=== PATIENT | female | born 1980 | race Hispanic/Latino ===

== ENCOUNTER 2025-03-21 13:18 | Emergency (ER) | payer SELFPAY ==
[~2025-03-21] VITALS: Ht 154.9 cm; Wt 52.2 kg
--- NOTE | 2025-03-21 13:28 | ERN ---
ED Note History of Present Illness Stated Complaint: GENERAL BODY ACHES AND PAINS WITH PALPITATIONS Chief Complaint: Multiple Complaints Time Seen by MD: 13:23 Time Seen by Midlevel: 13:23 Dictation: Ms. Quick is a female with history of hypertension (untreated) who was transported via EMS to the emergency department this afternoon for evaluation of flu symptoms. She states that Monday she developed general body weakness, fatigue, and body aches. She states that symptoms worsened throughout the week. Today she developed palpitations as well as anxiety prompting her to call 911. She denies fever, chills, shortness of breath, cough, chest pain, edema, abdominal pain, nausea, vomiting, hematemesis, constipation, diarrhea, melena, hematochezia, dysuria, hematuria, flank pain, hemorrhagia, headache, dizziness, or focal weakness/paresthesia. She states she does have frequent urination but this has been chronic after childbirth. Allergies: Coded Allergies: No Known Allergies (Unverified Allergy, Unknown, 03/21/25) Emergency Care PHYSICAL SECURITY SPECIALIST: None Home Meds Active Scripts Ondansetron (Ondansetron Odt) 4 Mg Tab.rapdis, 4 MG PO Q6HPRN PRN for nausea, #15 TAB 0 Refills Prov:MARISA SIMPSON NP 03/21/25 Past Medical History Past Medical History: No Pertinent History Surgical History: None PSYCH History: no pertinent psych hx Family History: HTN Social History: Negative, Lives with family LMP: Mar 18, 2025 RN Note Reviewed/Agreed w/PFSH: Yes Review of System Dictation REVIEW OF SYSTEMS: CONSTITUTIONAL: Patient denies fevers, chills, sweats and weight changes. Reports fatigue and general weakness EYES: Patient denies any visual symptoms. EARS, NOSE, AND THROAT: No difficulties with hearing. No symptoms of rhinitis or sore throat. CARDIOVASCULAR: Patient denies chest pains, orthopnea and paroxysmal nocturnal dyspnea. Reports palpitations. RESPIRATORY: No dyspnea on exertion, no wheezing or cough. GI: No nausea, vomiting, diarrhea, constipation, abdominal pain, hematochezia or melena. : No urinary hesitancy or dribbling. No nocturia or urinary frequency. No abnormal urethral discharge. MUSCULOSKELETAL: Reports body aches. NEUROLOGIC: No chronic headaches, no seizures. Patient denies numbness, tingling or weakness. PSYCHIATRIC: Patient denies problems with mood disturbance. Reports feeling anxious ENDOCRINE: No excessive urination or excessive thirst. DERMATOLOGIC: Patient denies any rashes or skin changes. Initial Vital Sign VS Vital Signs Date Time Temp Pulse Resp B/P (MAP) Pulse Ox O2 Delivery O2 Flow Rate FiO2 03/21/25 13:20 98.2 77 18 152/85 100 Room Air 0 03/21/25 13:39 21 Physical Exam Dictation Vital signs: Reviewed. Afebrile Constitutional: Slightly anxious. Head/Face: Normocephalic, atraumatic. Eyes: Periorbital areas with no swelling, redness, or edema. Lids and lashes are normal. Conjunctival injection is absent. Sclera anicteric. Pupils equal, round, reactive to light. ENT: Pinnas intact and no signs of trauma or erythema. Ear canals clear and no discharge. TMs no erythema. No nasal discharge or bleeding noted. Oropharynx with no exudate, redness, swelling, masses, exudates, or evidence of obstruction. Uvula midline. Mucous membranes moist. Neck: Trachea midline, no masses palpated, and no cervical lymphadenopathy. No swelling. Supple, full range of motion. Chest/Axilla: No tenderness, no crepitus, no paradoxical movement, no retractions. Cardiovascular: Regular rate, regular rhythm, no murmur, no gallops. Symmetric pulses. No peripheral edema. Hypertensive blood pressure; 151/78. Twelve lead EKG reflects a sinus rhythm without ST-elevation or depression. Respiratory: Respirations even and unlabored. Lung sounds clear; no wheezes, rales or rhonchi. Room air SpO2 90% Gastrointestinal: Inspection is normal. No distention is appreciated. Bowel sounds are normal. No mass or organomegaly . There is no tenderness. No rebound. No rigidity. No voluntary or involuntary guarding. No Gonzales's sign. Neurological: Normal speech, gross motor function intact, gross sensory function intact. No focal weakness/Paresthesia. Speech is clear. Musculoskeletal/Extremities: All extremities have full range of motion, no pain or tenderness on palpation. Symmetric pulses. Integumentary: Intact. Skin is normal color, warm and dry. Cap refill less than 2 seconds. Results (Laboratory/Radiology) Laboratory/Radiology Laboratory Tests Test 03/21/25 13:34 03/21/25 13:37 03/21/25 14:18 White Blood Count 5.1 K/uL (4.8-10.8) Red Blood Count 3.41 MIL/uL (4.00-5.50) L Hemoglobin 9.1 g/dL (12.0-16.0) L Hematocrit 28.0 % (36-48) L Mean Corpuscular Volume 82.1 fL (79-99) Mean Corpuscular Hemoglobin 26.7 pg (27.0-33.0) L Mean Corpuscular Hemoglobin Concent 32.5 g/dL (32.0-36.0) Red Cell Distribution Width 13.8 % (11.0-15.5) Platelet Count 276 K/uL (130-400) Mean Platelet Volume 9.7 fL (7.5-10.5) Immature Granulocyte % (Auto) 0.4 % (0-1) Neutrophils (%) (Auto) 71.0 % (40.0-77.0) Lymphocytes (%) (Auto) 21.3 % (21.0-51.0) Monocytes (%) (Auto) 6.3 % (3.0-13.0) Eosinophils (%) (Auto) 0.4 % (0.0-8.0) Basophils (%) (Auto) 0.6 % (0.0-5.0) Neutrophils # (Auto) 3.6 K/uL (1.8-7.7) Lymphocytes # (Auto) 1.1 K/uL (1.0-4.8) Monocytes # (Auto) 0.3 K/uL (0.1-1.0) Eosinophils # (Auto) 0.02 K/uL (0.00-0.70) Basophils # (Auto) 0.03 K/uL (0.00-0.20) Absolute Immature Granulocyte (auto 0.02 K/uL (0-1) Nucleated Red Blood Cells 0.0 % (0.0-0.19) Sodium Level 140 mmol/L (136-145) Potassium Level 3.1 mmol/L (3.5-5.1) L Chloride Level 104 mmol/L (101-111) Carbon Dioxide Level 26 mmol/L (21-32) Blood Urea Nitrogen 13 mg/dL (7-18) Creatinine 0.7 mg/dL (0.5-1.0) Glomerular Filtration Rate Calc 109 mL/min (>90) Random Glucose 152 mg/dL (70-105) H Lactic Acid Level 2.1 mmol/L (0.8-2.5) Total Calcium 8.4 mg/dL (8.5-10.1) L Troponin I High Sensitivity 13 ng/L (4-50) Influenza Type A Antigen Negative For Type A Influenza Type B Antigen Negative For Type B SARS-CoV-2, RNA, NAAT NEGATIVE SARS CoV-2 Urine Color COLORLESS (YELLOW) Urine Appearance CLEAR (CLEAR) Urine pH 6.5 (5.0-8.0) Urine Specific [place] 1.008 (1.001-1.031) Urine Protein NEGATIVE mg/dL (NEGATIVE) Urine Glucose (UA) NEGATIVE mg/dL (NEGATIVE) Urine Ketones NEGATIVE mg/dL (NEGATIVE) Urine Occult Blood +- (TRACE) (NEGATIVE) H Urine Nitrate NEGATIVE (NEGATIVE) Urine Bilirubin NEGATIVE mg/dL (NEGATIVE) Urine Urobilinogen 0.2 mg/dL (0.2-1.0) Urine Leukocyte Esterase NEGATIVE Yuliya/uL Urine HCG, Qualitative NEGATIVE (NEGATIVE) Labs Reviewed?: Yes EKG Comment: EKG Interpretation: Time Reviewed: 1315 Ventricular rate: 79 bpm [place] Interval: 125 ms QRS duration: [address] segment elevation or depression. Clinical impression: sinus rhythm EKG Reviewed and interpreted by Dr. Deleon ED Course ED Course Orders Procedure Category Date Status Time Influenza Type A & B, LAB 03/21/25 Complete Rapid 13:23 Covid Rna Naat LAB 03/21/25 Complete 13:23 Cbc With Differential LAB 03/21/25 Complete 13:23 Basic Metabolic Panel LAB 03/21/25 Complete 13:23 Urinalysis Profile LAB 03/21/25 Complete 13:23 12 Lead Ekg Tracing- EKG 03/21/25 Complete Technical 13:23 Troponin I High LAB 03/21/25 Complete Sensitivity 13:23 Lactic Acid LAB 03/21/25 Complete 13:23 Ondansetron 4mg Inj PHA 03/21/25 Complete (Zofran 4mg Inj) 13:30 0.9%Nacl 1000ml (Ns PHA 03/21/25 Complete 1000ml) 13:30 ,Urine Test LAB 03/21/25 Complete 13:23 0.9%Nacl 1000ml (Ns PHA 03/21/25 Complete 1000ml) 15:00 Potassium Bicarb/Cit PHA 03/21/25 Complete Ac 25meq (K-Lyte Ta 15:00 Current Medications Medications (Trade) Dose Ordered Sig/Hunter Route PRN Reason Start Time Stop Time Status Last Admin Dose Admin Ondansetron HCl (zoFRAN 4MG INJ) 4 mg ONCE ONCE IVP 03/21/25 13:30 03/21/25 13:31 DC 03/21/25 13:39 Potassium Bicarbonate (K-Lyte Tablet Eff 25 Meq Tablet.eff) 50 meq ONCE ONCE PO 03/21/25 15:00 03/21/25 15:01 DC 03/21/25 15:25 Sodium Chloride 1,000 ml @ 0 mls/hr ONCE ONCE IV 03/21/25 13:30 03/21/25 13:31 DC 03/21/25 13:39 Sodium Chloride 1,000 ml @ 0 mls/hr ONCE ONCE IV 03/21/25 15:00 03/21/25 15:01 DC 03/21/25 15:26 Vital Signs Date Time Temp Pulse Resp B/P (MAP) Pulse Ox O2 Delivery O2 Flow Rate FiO2 03/21/25 13:39 97.9 76 20 151/78 100 Room Air* 0 21 03/21/25 13:20 98.2 77 18 152/85 100 Room Air 0 Uneventful ED course. Twelve lead EKG reflects a sinus rhythm without ST elevation or depression. BP remains slightly elevated 151/78; afebrile with r oom air SpO2 100%. Laboratory findings as noted below. Initial lactic acid 2.1; repeat within normal limits. H/H 9.1/28, K3.1, Ca 8.4, and glucose 152. COVID and influenza negative. UA clear. She received doses Zofran, KCl, and NS 2000 mL IV as bolus. States she is feeling much better. She denies abdominal pain or nausea. Findings were discussed with patient and recommended follow up with a PCP for anemia workup and management of blood pressure. Medical Decision Making MDM MDM: Differential diagnosis: ACS, cardiac arrhythmia, dehydration, electrolyte derangement, UTI Rationale: Tests considered and ordered secondary to shared decision making include: Lab, EKG Previous outside records reviewed: Old ER visits. Risk of complication and/or morbidity or mortality of patient management: None Medications-Per medication reconciliation Need for hospitalization: Patient does not meet criteria for hospitalization. Need for emergency major/minor surgery: No There are no social concerns with this patient. Prescription drug management: Zofran Prescriptions will include symptomatic care Patient's prior external medical records from other ER visits were reviewed by me as indicated. Prior testing and results from previous visits were reviewed. Prior tests were taken into account with medical decision making and resource utilization, independent historian/historians were used to obtain complete medical history. I independently interpreted the test that were performed, results were reviewed by me and considered findings on radiology if ordered. Medical management and examination interpretation discussions were had by me with other qualified healthcare professionals as indicated for the patient's care. DX & DISP Disposition: Discharge Departure Impression: Primary Impression: Palpitations Additional Impressions: Anemia, Hypokalemia, Essential hypertension, Elevated random blood glucose level Condition: Stable Scripts Ondansetron (Ondansetron Odt) 4 Mg Tab.rapdis 4 MG PO Q6HPRN PRN for nausea, #15 TAB 0 Refills Prov: MARISA SIMPSON NP 03/21/25 Additional Instructions: Drink plenty of fluids and eat a balanced diet that includes iron rich foods (lean meats, leafy greens, beans, or 4-5 cereals)-this can help with mild anemia. Avoid excess salt, alcohol and tobacco. Rest of you feel tired. Check your blood pressure at home and keep a log. Hydrate well over the next 24-48 hours follow up with your primary care provider within one week. You may need additional lab studies for possible prediabetes or diabetes as well as iron studies/anemia workup. Return to the emergency department if you develop: Chest pain, shortness of breath, or fainting. Severe headache, vision changes, or neurological symptoms (example weakness, difficulty speaking). Dizziness, rapid heart beat, or bleeding. Any worsening of your condition or new concerning symptoms. Time of Disposition: 15:32 MARISA SIMPSON NP Mar 21, 2025 13:28
--- NOTE | 2025-03-21 13:32 | EKG ---
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
[2025-03-21 13:39] VITALS: TEMP 97.9
[2025-03-21] MEDS: 0.9%NACL 1000ML 1,000 ML IV ONE ×2 (13:39→15:26)
[2025-03-21 13:42] LABS: IMMATURE GRANULOCYTE ABSOLUTE 0.02 K/uL (0-1); NUCLEATED RED BLOOD CELLS 0.0 % (0.0-0.19); PLATELET COUNT (AUTO) 276 K/uL (130-400); RED BLOOD CELL COUNT(AUTO) 3.41 MIL/uL (4.00-5.50); RED CELL DISTRIBUTION WIDTH 13.8 % (11.0-15.5); WHITE BLOOD COUNT (AUTO) 5.1 K/uL (4.8-10.8)
[2025-03-21 13:47] LABS: CREATININE 0.7 mg/dL (0.5-1.0); GLOMERULAR FILTR. RATE CALC 109.0 mL/min (>90); GLUCOSE,RANDOM 152.0 mg/dL (70-105); SODIUM SERUM 140.0 mmol/L (136-145); UREA NITROGEN, BLOOD 13.0 mg/dL (7-18)
[2025-03-21 14:05] LABS: SARS-CoV-2, RNA, NAAT NEGATIVE SARS CoV-2 (NEGATIVE)
[2025-03-21 14:08] LABS: INFLUENZA TYPE A Negative For Type A (NEGATIVE); INFLUENZA TYPE B Negative For Type B (NEGATIVE)
[2025-03-21 14:36] LABS: APPEARANCE,URINE CLEAR (CLEAR); GLUCOSE, URINE (UA) NEGATIVE (NEGATIVE); LEUKOCYTE ESTERASE ,URINE NEGATIVE Leu/uL (NEGATIVE); NITRATE,URINE NEGATIVE (NEGATIVE); OCCULT BLOOD,URINE +- (TRACE) (NEGATIVE)
[2025-03-21 14:37] LABS: HCG,QUALITATIVE URINE NEGATIVE (NEGATIVE)
[2025-03-21 14:38] LABS: ADD UA MICROSCOPIC NO
[2025-03-21] MEDS ORDERED: ONDA-243 PO (15:02)
[2025-03-21 16:33] VITALS: BP 150/80; PULSE 93; RESP 20; O2SAT 99
== END 2025-03-21 16:39 | disposition home or self-care (01) ==
LOC: EDH 13:18
DX: R00.2 Palpitations (principal); D64.9 Anemia, unspecified; E87.6 Hypokalemia; I10 Essential (primary) hypertension; Z20.822 Contact with and (suspected) exposure to COVID-19; Z79.899 Other long term (current) drug therapy
CPT/HCPCS: 99284; 96374; 96361; 87635; 84484; 80048; 85025; 87804 ×2; 83605; 81003; 81025; 36415; 93005; J7030; J2405